=== PATIENT | male | born 1980 | race Caucasian/White ===

== ENCOUNTER 2017-08-28 23:31 | Observation (INO) | payer OTHER ==
[2017-08-28 23:47] VITALS: BMI 27.2
[2017-08-29] MEDS ORDERED: SODIUM CHLORIDE 1,000 ML IV ONE
[2017-08-29] MEDS ORDERED: ONDANSETRON 4 MG/2 ML VIAL IVPUSH STA
--- NOTE | 2017-08-29 00:12 | PDOC ---
History of Present Illness - General Chief Complaint: Migraine Headache Stated Complaint: MIGRAINE Time Seen by Provider: 08/28/17 23:47 History Source: Patient, Spouse Exam Limitations: No Limitations, Clinical Condition - History of Present Illness Initial Comments: 08/29/17 00:06 37-year-old male with history of migraines brought in by EMS after activated 911 secondary to severe headache and altered mental status. Patient has been having increasing frequency of headaches for 1-2 months, almost daily and not relieved with Relpax. Patient saw his primary physician over the last few weeks, had an MRI of the cervical spine (unclear whether also had MRI brain ) that showed some herniated cervical disks, otherwise has had recurring headaches nonetheless. This evening, was in the state of health and while at dinner began having his typical aura, had 2 beers with dinner, and they returned home when his headaches began. At home, per had apparent severe worsening of his headache followed by confusion and altered mental status, was on the ground having difficulty standing, and was unable to identify himself or the president to EMS. There was vomiting at home and again in the emergency department, no history of falls or head injury. Other than 2 beers tonight, no alcohol or drug abuse or intoxication. No other changes in medications, no recent travel, no sick contacts. NIH Stroke Scale - Last Known Well Date/Time & Onset Date Last Known Well: 08/28/17 Time Last Known Well: 23:15 - Initial Evaluation Level of consciousness: Alert Ask patient the month and their age: Answers one correctly Ask patient to open & close eyes; make fist and let go: Obeys both correctly Best gaze (horizontal eye movement): Normal Visual field testing: No visual field loss Facial paresis (Show teeth/raise eyebrows/close eyes tight): Normal symmetrical movement Motor Function: Left Arm: Normal Motor Function: Right Arm: Normal (extends arm 90 (or 45) degrees for 10 seconds without drift Motor Function: Left Leg: Normal (extends leg 30 degrees for 5 seconds without drift) Motor Function: Right Leg: Normal (extends leg 30 degrees for 5 seconds without drift) Limb Ataxia: No ataxia Sensory(Use pinprick test arms,legs,trunk,face/side to side): Normal Best language (Describe picture, name items, read sentences): Mild to moderate aphasia Dysarthria (read several words): Normal articulation Extinction and Inattention: No abnormality - Total Score NIH Stroke Scale Score: 2 Past History - Past Medical History Allergies/Adverse Reactions: Allergies Allergy/AdvReac Type Severity Reaction Status Date / Time No Allergy Information Allergy Verified 08/28/17 23:38 Available - Suicide/Smoking/Psychosocial Hx Smoking History: Unknown if ever smoked Hx Alcohol Use: No Drug/Substance Use Hx: No Review of Systems - Review of Systems Able to Perform ROS?: (limited to as perHPI) *Physical Exam - Vital Signs Last Vital Signs Temp Pulse Resp BP Pulse Ox 97.2 F L 53 L 14 104/71 95 08/28/17 23:38 08/28/17 23:38 08/28/17 23:38 08/28/17 23:38 08/28/17 23:38 - Physical Exam Comments: 08/29/17 00:09 Afebrile. GENERAL: vomited food content on stretcher and floor. The patient is asleep but arousable to voice. HEAD: Normal with no signs of trauma. EYES: PERRL, EOMI, + photophobia, conjunctiva clear with no pallor. ENT: oropharynx clear without exudates. Moist mucous membranes. NECK: Normal range of motion, supple without lymphadenopathy, masses, or meningismus. LUNGS: Breath sounds equal, clear to auscultation bilaterally. No wheeze/ crackles. HEART: Regular rate and rhythm, normal S1 and S2 without murmur or rub. ABDOMEN: Soft/nontender/nondistended. BS wnl. No guarding or rebound. No palpable masses. No hepatosplenomegaly. EXTREMITIES: Normal range of motion, no edema. 2+ distal pulses. No cords, erythema, or tenderness. NEUROLOGICAL: Cranial nerves II through XII grossly intact. Following commands and moving all extremities equally but confused, not answering questions appropriately (can't state full name, can't state where he is) PSYCH: unable to assess but cooperative. SKIN: Warm, Dry, no rashes or lesions noted. Heart Score/ECG Review #1 ECG reviewed & interpreted by me at: 02:22 General ECG Interpretation: Sinus Rhythm, Normal Rate (77), Normal Intervals ( qrs 108, qtc 450), No acute ischemic changes (isolated MT depression II, no ST changes) ED Treatment Course - LABORATORY CBC & Chemistry Diagram: 08/29/17 00:44 08/29/17 00:44 - RADIOLOGY Radiology Studies Ordered: Category Date Time Status HEAD CT WITHOUT CONTRAST [CT] Stat CT Scan 08/28/17 23:59 Ordered CHEST X-RAY PORTABLE* [RAD] Stat Radiology 08/29/17 00:00 Ordered Medical Decision Making - Critical Care Time Total Critical Care Time (minutes): 95 Critical Care Statement: The care of this patient involved high complexity decision making to prevent further life threatening deterioration of the patient 's condition and/or to evaluate & treat vital organ system(s) failure or risk of failure. - Medical Decision Making 08/29/17 00:13 37-year-old male with history of migraines presents now with severe headache and altered mental status. Vital signs are within normal limits, neurologically nonfocal, but confused. Stat head CT to r/o bleed seems less consistent with meningitis or encephalitis but will monitor mental status labs, ekg reassess 08/29/17 01:[address], required sedation with benzo. will return to CT again. wbc 12.5 with normal diff. Chem pending. 08/29/17 01:33 Chem also wnl. Still neuro intact but altered/agitated and requiring more benzo to get CT. ? tox. UA/tox ordered. continue to monitor 08/29/17 02:11 Labs wnl, trop negative. VS remain stable, BP 117/70, O2 99% on room air, P 84. Discussed possibility of intox with again: has h/o marijuana use but he denied to her today, has not noticed any other drug use. Awaiting CT read, but will proceed with observation placement at this time with presumed intox/agitated delerium. Remains less consistent with acute [employer]PECT[employer] infection give the acuity and slightly improving sxs with benzos. 08/29/17 02:24 Excepted for observation med/surge by Dr. Albarran, signout given to Dr. Solares. Pending: Utox. CT read as normal by [facility]. asleep at this time with normal VS, nonfocal neuro exam, and patent airway. *DC/Admit/Observation/Transfer Diagnosis at time of Disposition: Delirium Altered mental status Qualifiers: Altered mental status type: transient alteration of awareness Qualified Code(s) : R40.4 - Transient alteration of awareness - Discharge Dispostion Condition at time of disposition: Guarded Admit: Yes - Referrals Referrals: STAFF,NOT ON [Primary Care Provider] -
[2017-08-29 00:51] LABS: BASOPHIL 0.4 % (0-2.0); EOSINOPHIL 0.6 % (0-4.5); MCH 30.5 pg (25.7-33.7); MCHC 34.6 g/dl (32.0-35.9); MEAN CELL VOLUME 88.2 fl (80-96); MEAN PLT VOLUME 7.9 fl (7.5-11.1); NEUTROPHILS 76.5 % (42.8-82.8); PLATELET COUNT 217 K/MM3 (134-434); RDW 13.6 % (11.9-15.9); WHITE BLOOD COUNT 12.5 K/mm3 (4.0-10.0)
[2017-08-29 01:06] LABS: INR 0.96 (0.82-1.09); PROTHROMBIN TIME (PATIENT) 10.9 SEC (9.98-11.88)
[2017-08-29] MEDS ORDERED: ONDANSETRON 4 MG/2 ML VIAL ONE (01:06)
[2017-08-29 01:16] LABS: ALBUMIN 4.2 g/dl (3.4-5.0); ANION GAP 12 (8-16); BILIRUBIN,TOTAL 0.7 mg/dL (0.2-1.0); CALCIUM 8.9 mg/dL (8.5-10.1); CO2 24 mmol/L (21-32); CREATININE 0.7 mg/dL (0.7-1.3); GLUCOSE,RANDOM 118 mg/dL (74-106); SGPT/ALT 41 U/L (12-78); TOT PROT 6.9 g/dl (6.4-8.2)
[2017-08-29 01:19] LABS: ALK PHOS 75 U/L (45-117); CPK 89 IU/L (39-308); TROPONIN I < 0.02 ng/ml (0.00-0.05)
[2017-08-29 01:30] LABS: SGOT/AST 20 U/L (15-37)
[2017-08-29] MEDS ORDERED: HALOPERIDOL LACTATE 5 MG/ML IVPUSH ONE (01:38)
[2017-08-29] MEDS ORDERED: HALOPERIDOL LACTATE 5 MG/ML ONE (01:44)
[2017-08-29 02:41] LABS: ALCOHOL < 5.0 mg/dl (0-5)
[2017-08-29 02:53] LABS: SALICYLATE < 4.0 mg/dl (0.0-30.0)
--- NOTE | 2017-08-29 03:28 | HP ---
CHIEF COMPLAINT: AMS PCP: [place] HISTORY OF PRESENT ILLNESS: 37 yr old man with hx of migraines bibems by due to acute AMS and difficulty walking. He typically has 1-2 migraines a year, he has been experiencing a recent increase in frequency to several a month, to nearly everyday requiring relpax. He was in his usual state of health earlier this morning. They went to out to dinner, he had 2 beers, but he began to have aura so they quickly went home. He was out of his relpax and was about to go to sleep to try to find relief of his symptoms. heard him yell and fall in from the next room, she went to find him unable to stand and unable to walk. She was unable to help him up. He was confused at where he was, and what was happening around him. he had multiple episodes of nonbloody watery vomiting at home and in the ED. He had been recently sent for spinal MRI as per his PCP to evaluate migraines, and as per , he had lumbar disc herniations provided history as patient required sedation in ED due to combative behavior. has been away for the past week and does not recall him complaining of any fevers, chest pain, n/v, constipation, diarrhea eating any new foods or drug use during their phone conversation. they have been for nearly 15 years with children. ER course was notable for: (1) head CT (2) ativan + haldol Recent Travel: [place] PAST MEDICAL HISTORY: migraines PAST SURGICAL HISTORY: denies Social History: Smoking: denies Alcohol: occasionally Drugs: marijuana smoked occasionally 1-2x/every few months Family History: as per his elderly parents have "old people problems" denies family hx of mental health d/o, aneurysms, cancers. Allergies No Allergy Information Available Allergy (Verified 08/28/17 23:38) HOME MEDICATIONS: replax and adderall REVIEW OF SYSTEMS: unable to complete due to sedation PHYSICAL EXAMINATION GENERAL: sedated, in no acute distress. HEAD: Normal with no signs of trauma. EYES: patient would not allow me to open them EARS, NOSE, THROAT: Moist mucous membranes. NECK: Normal range of motion, supple without lymphadenopathy, JVD, or masses. LUNGS: Breath sounds equal, clear to auscultation bilaterally. No wheezes, and no crackles. No accessory muscle use. HEART: Regular rate and rhythm, normal S1 and S2 without murmur, rub or gallop. ABDOMEN: Soft, nontender, not distended, normoactive bowel sounds, no guarding, no rebound, no masses. MUSCULOSKELETAL: Normal range of motion at all joints. No bony deformities. UPPER EXTREMITIES: 2+ radial pulses, warm, well-perfused. No cyanosis. No clubbing. No peripheral edema. LOWER EXTREMITIES: 2+ dp pulses, warm, well-perfused. No calf tenderness. No peripheral edema. tattoos. NEUROLOGICAL: facial symmetry. +knee jerk b/l and biceps reflexes. downgoing babinski reflex b/l SKIN: Warm, dry, normal turgor, light-brown pigmented macular rash on left shoulder - as per it comes and goes Laboratory Results - last 24 hr 08/29/17 02:20 Salicylates < 4.0 Acetaminophen < 2.000 L Alcohol, Quantitative < 5.0 ASSESSMENT/PLAN: 37 yr old man with hx of migraines presents with acute AMS placed on observation for further evaluation. #Acute altered mental status in setting of severe migraine with aura - as per ED NIH stroke scale of [address] - low suspicion for CVA - suspicios for drug induced acute encephalopathy, either illicit or se of replax/adderall use, utox pending - r/o syphyilis, thyroid dysfunction, vit b12 def, lyme -neurology evaluation -NPO while sedated - repeated neurological tested once sedation decreases #DVT: SCDs Visit type - Emergency Visit Emergency Visit: Yes ED Registration Date: 08/29/17 Care time: The patient presented to the Emergency Department on the above date and was hospitalized for further evaluation of their emergent condition. - New Patient This patient is new to me today: Yes Date on this admission: 08/29/17 - Critical Care Critical Care patient: No
--- NOTE | 2017-08-29 03:43 | PN ---
Teaching Attending Note Name of Resident: Yenifer Solares ATTENDING PHYSICIAN STATEMENT I saw and evaluated the patient. Chart, data, imaging reviewed. I reviewed the resident's note and discussed the case with the resident. I agree with the resident's findings and plan as documented with modifications below. History obtained from EMR and patient's . SUBJECTIVE: 37-year-old male with history of migraines with aura c/o severe headache with aura which started yesterday morning which was followed by altered mental status. Patient saw his primary physician over the last few weeks, had an MRI of the cervical spine that showed some herniated cervical disks. Patient has been having increasing frequency of headaches for 1-2 months, almost daily. He takes Relpex for headahce ppx however has ran out of his medication recently. As per , patient smokes marijuana and last used about 3 weeks ago. There have been no sick contacts, recent travels. No fevers, no head trauma. OBJECTIVE: Last Vital Signs Temp Pulse Resp BP Pulse Ox 97.8 F 76 18 123/83 95 08/29/17 02:20 08/29/17 04:01 08/29/17 04:01 08/29/17 04:01 08/29/17 04:01 Exam is limited as patient was sedated and not cooperative Neruo- sedated HEENT- AT, NC CV-s1+S2+ RRR Chest - CTA b/l Abdomen- soft, obese, BS+ Skin -mutlipe tattoos Head CT- negative for intracranial bleed or masses Abnormal Lab Results 08/29/17 08/29/17 08/29/17 00:44 00:44 02:20 WBC 12.5 H BUN 19 H Random Glucose 118 H Acetaminophen < 2.000 L ASSESSMENT AND PLAN: #Acute onset of altered mental status in setting of severe migraine with aura. Unlikely acute intracranial vascular event as head CT is normal. Unlikely encephalitis/meningitis as patient is afebrile. Headaches may also be related to Adderral. Should r/o epilepsy. Should r/o illicit drugs. -admit to observation -EKG -UA -urine toxicology (including synthetic cannabinoids) -vitamin b12 -syphilis serology -Lyme serology -TSH -repeat electrolytes, supplement PRN -EEG -consider brain MRI -if no improvement, consider LP -neurology evaluation -NPO #DVT ppx -SCDs
--- NOTE | 2017-08-29 10:25 | PN ---
Physical Exam: SUBJECTIVE: Patient seen and examined at bedside. present. He remembers going out to dinner with his last night. He has no recollection of what happened in the restaurant or afterward. The next thing he remembers is being in the hospital. gives following additional history: patient has had migraines since age 17 , but have become more frequent over past 4 months. 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 Patient went to see his PCP Dr. Bang Orozco ([address] [place] [address] , fax) who ordered a spine MRI on 08/23/17. The results reportedly show three "slipped discs." The patient has not traveled outside [place]. He has had no sick contacts. Family recently moved to [place], but patient has not engaged in any outdoor activities. Patient smokes marijuana, last time ~ 3 weeks ago. has been away on business for past week. She thinks it unlikely patient did illicit drugs in her absence. OBJECTIVE: Vital Signs Period Temp Pulse Resp BP Sys/Sofia Pulse Ox Last 24 Hr 97.8 F-99.4 F 76-99 18-20 101-123/70-83 95-95 GENERAL: The patient is lethargic. Cannot keep eyes open. When he is awake he is A&Ox 3, but quickly falls off. Complains of back pain HEAD: Normal with no signs of trauma. EYES: PERRL, extraocular movements intact, sclera anicteric, conjunctiva clear. No ptosis. ENT: Ears normal, nares patent, oropharynx clear without exudates, moist mucous membranes. NECK: Trachea midline, full range of motion, supple. LUNGS: Breath sounds equal, clear to auscultation bilaterally, no wheezes, no crackles, no accessory muscle use. HEART: Regular rate and rhythm, S1, S2 without murmur, rub or gallop. ABDOMEN: Soft, nontender, nondistended, normoactive bowel sounds, no guarding, no rebound, no hepatosplenomegaly, no masses. EXTREMITIES: 2+ pulses, warm, well-perfused, no edema. NEUROLOGICAL: CN II thru XII grossly intact. 5/5 motor, 5/5 sensory all extremities. No focal deficits. Falls asleep during EOM testing. SKIN: pale, macular fungal-type rash on chest and upper left shoulder ( says chronic) Laboratory Tests 08/29/17 08/29/17 08/29/17 00:44 00:44 00:44 WBC 12.5 H RBC 5.30 Hgb 16.2 Hct 46.7 MCV 88.2 MCH 30.5 MCHC 34.6 RDW 13.6 Plt Count 217 MPV 7.9 Neutrophils % 76.5 Lymphocytes % 17.0 Monocytes % 5.5 Eosinophils % 0.6 Basophils % 0.4 ESR PT with INR 10.90 INR 0.96 Sodium 141 Potassium 3.9 Chloride 105 Carbon Dioxide 24 Anion Gap 12 BUN 19 H Creatinine 0.7 Creat Clearance w eGFR > 60 Random Glucose 118 H Lactic Acid Calcium 8.9 Phosphorus Magnesium Total Bilirubin 0.7 Direct Bilirubin AST 20 ALT 41 Alkaline Phosphatase 75 Creatine Kinase 89 Troponin I < 0.02 C-Reactive Protein B-Natriuretic Peptide Total Protein 6.9 Albumin 4.2 Vitamin B12 TSH Urine Color Urine Appearance Urine pH Ur Specific [place] Urine Protein Urine Glucose (UA) Urine Ketones Urine Blood Urine Nitrite Urine Bilirubin Urine Urobilinogen Ur Leukocyte Esterase Salicylates Opiates Screen Methadone Screen Acetaminophen Barbiturate Screen Phencyclidine Screen Ur Amphetamines Screen MDMA (Ecstasy) Screen Benzodiazepines Screen Cocaine Screen U Marijuana (THC) Screen Alcohol, Quantitative RPR Titer Lyme Screen IgG & IgM HIV 1&2 Antibody Screen HIV P24 Antigen Blood Type Antibody Screen 08/29/17 08/29/17 02:20 06:00 Vitamin B12 283 Salicylates < 4.0 Acetaminophen < 2.000 L Alcohol, Quantitative < 5.0 Active Medications Generic Name Dose Route Start Last Admin Trade Name Freq PRN Reason Stop Dose Admin Dextrose/Sodium Chloride 1,000 mls @ 75 mls/hr 08/29/17 10:00 D5-1/2ns - IV ASDIR [facility] ASSESSMENT/PLAN 37 year-old male with a PMH significant for migraine with aura, admitted for altered mental status. Altered mental status of uncertain etiology --infectious: elevated WBC, afebrile; discussed at length with Dr. Joy, will observe off antibiotics for now; low threshold to start acyclovir if fever or deterioration of mental status; RPR, Lyme, HIV pending; esr, crp pending; blood and urine cultures pending --neuro: h/o migraine with aura but no previous reported episodes of AMS; CT head unremarkable; will get MRI brain; neuro consult pending --toxic metabolic encephalopathy: utox pending; serum negative for salicylates, acetaminophen, alcohol F/E/N Fluids: D51/2 NS @ 75mL/hr Electrolytes: replete as indicated Nutrition: NPO Visit type - Emergency Visit Emergency Visit: Yes ED Registration Date: 08/29/17 Care time: The patient presented to the Emergency Department on the above date and was hospitalized for further evaluation of their emergent condition. - New Patient This patient is new to me today: Yes Date on this admission: 08/31/17 - Critical Care Critical Care patient: No
[2017-08-29 10:38] LABS: THYROID STIMULATING HORMONE 0.21 uIU/ml (0.358-3.74)
[2017-08-29 10:44] LABS: BASOPHIL 0.2 % (0-2.0); MCHC 34.1 g/dl (32.0-35.9); MEAN PLT VOLUME 8.1 fl (7.5-11.1); NEUTROPHILS 81.8 % (42.8-82.8); PLATELET COUNT 222 K/MM3 (134-434); RDW 13.4 % (11.9-15.9); WHITE BLOOD COUNT 13.9 K/mm3 (4.0-10.0)
--- NOTE | 2017-08-29 10:47 | PN ---
Progress Note, Physician Chief Complaint: ID Full noted dictated and discussed with Carmita Mohr INSTRUCTOR OF EDUCATION Afebrile Alert Sleepy but oriented completely Complaints headaches similiar to migraines and says get "aphagia" with migaines No travel PEts include cat No couph rash diarrhea sorethroat joint pains takes Adderal for ADD and uses marijuana only - Current Medication List Current Medications: Active Medications Dextrose/Sodium Chloride (D5-1/2ns -) 1,000 mls @ 75 mls/hr IV ASDIR S[facility]HIE - Objective Vital Signs: Vital Signs Temperature 99.2 F 08/29/17 09:22 Pulse Rate 99 H 08/29/17 08:58 Respiratory Rate 18 08/29/17 08:58 Blood Pressure 119/70 08/29/17 08:58 O2 Sat by Pulse Oximetry (%) 95 08/29/17 04:01 Constitutional: Yes: No Distress Eyes: Yes: Other (Comjuntival injection) Neck: Yes: Other (Supple in all directions) Cardiovascular: Yes: Regular Rate and Rhythm, S1, S2. No: Murmur Respiratory: Yes: WNL, Regular, CTA Bilaterally Gastrointestinal: Yes: Soft Edema: No Integumentary: Yes: Tattoos Labs: INR, PTT INR 0.96 (0.82-1.09) 08/29/17 00:44 Problem List - Problems (1) Altered mental status Code(s): R41.82 - ALTERED MENTAL STATUS, UNSPECIFIED Qualifiers: Altered mental status type: transient alteration of awareness Qualified Code(s): R40.4 - Transient alteration of awareness; R40.4 - Transient alteration of awareness (2) Delirium Code(s): R41.0 - DISORIENTATION, UNSPECIFIED (3) Migraine Code(s): G43.909 - MIGRAINE, UNSP, NOT INTRACTABLE, WITHOUT STATUS MIGRAINOSUS Assessment/Plan Laboratory Tests 08/29/17 08/29/17 08/29/17 00:44 00:44 02:20 WBC 12.5 H Hgb 16.2 Hct 46.7 Plt Count 217 Neutrophils % 76.5 Lymphocytes % 17.0 Monocytes % 5.5 Creatinine 0.7 Total Bilirubin 0.7 AST 20 ALT 41 Creatine Kinase 89 Salicylates < 4.0 Acetaminophen < 2.000 L Alcohol, Quantitative < 5.0 RPR Titer 08/29/17 06:00 WBC Hgb Hct Plt Count Neutrophils % Lymphocytes % Monocytes % Creatinine Total Bilirubin AST ALT Creatine Kinase Salicylates Acetaminophen Alcohol, Quantitative RPR Titer Pending Assessment At this time the findings do not point to an infectious etiology for his altered mental status Headaches yes but these similiar to his previous migraines. Currently he is alert and oriented and this argues against an encephalitis. He has some conjuctival injection ? significance lives in [facility]. Plan For now observe only NO ZOVIRAX or antibiotics at this time Should he have fever or deterioration of mental status would definately start Acyclovir HIV testing MRI of the brain Neurology evaluation BOO Joy MD
--- NOTE | 2017-08-29 10:50 | EKG ---
Test Reason : Blood Pressure : / mmHG Vent. Rate : 077 BPM Atrial Rate : 077 BPM P-R Int : 198 ms QRS Dur : 108 ms QT Int : 398 ms P-R-T Axes : 064 071 057 degrees QTc Int : 450 ms NORMAL SINUS RHYTHM WITH SINUS ARRHYTHMIA ST ELEVATION, CONSIDER EARLY REPOLARIZATION BORDERLINE ECG NO PREVIOUS ECGS AVAILABLE CLINICAL CORRELATION IS RECOMMENDED Confirmed by GRAY WEISS, FIDEL ([id number]) on 08/29/2017 10:49:53 AM Referred By: Confirmed By:FIDEL CASTELLANO MD
--- NOTE | 2017-08-29 11:14 | CONS ---
DATE OF CONSULTATION: 08/29/2017 This is a 37-year-old male with a long history of migraine headaches who I am asked to see for evaluation of altered mental status. He takes Relpax for his headaches and notes, over the last month, that his headaches have been increasing in frequency and severity. He is followed by neurologist and recently had an MRI of the cervical spine, which showed only cervical disk disease, but no other pathology, according to the progress notes. Yesterday, he went out to dinner with his and, when he returned home, noted that his headaches had begun once again. He also then became confused and, according to the patient, had what he described as aphasia with slurred speech. He has a history of alterations in speech, which he says have been part of his migraine episodes. He has no fever, chills and a preliminary drug screen from blood was negative for alcohol. He admits to using marijuana and takes Adderall for attention deficit disorder, but denies any other substance use. His HIV status is unknown. He is and lives with his , having recently relocated from [place] to [place]. He works as a musical interactive producer and musician and has not traveled, has no history of tick bites, other insect bites, joint pains, or exposure to wooded areas. Pets include a cat and he has no coryza, sore throat, or other symptoms to suggest respiratory infection. PAST MEDICAL HISTORY: As noted above. MEDICATIONS: For migraines. ALLERGIES: None known. SOCIAL HISTORY: As noted. FAMILY HISTORY: Reviewed and noncontributory. REVIEW OF SYSTEMS: All systems reviewed and negative. PHYSICAL EXAMINATION: General: He was an alert male who appeared completely oriented with a temperature 99.4 and 99.2, but otherwise had been afebrile. HEENT: Alert and oriented x3. Conjunctival injection. The pharynx is benign. Neck: Supple without adenopathy. Lungs: Clear to percussion and auscultation. Heart: S1, S2, regular rhythm without murmur. Abdomen: Soft and nontender without hepatosplenomegaly. Extremities: Without clubbing, cyanosis, edema. Skin: Multiple tattoos and what appeared to be a fungal macular rash on both sides of his chest. Neurologic: Cranial nerves intact. Motor and sensory strength appear normal. The white count is 12.5, hemoglobin 16.2, platelets of 217. Chemistry is completely within normal limits. CPK 89, troponin 0.02. Head CT scan without contrast: No acute bleed or infarct. Chest x-ray shows no acute infiltrate. ASSESSMENT: A 37-year-old male with a history of migraines notes that his headaches have become more severe in the last month.Experienced an episode of confusion with slurred speech last night following dinner which seems transient ; currently low-grade temperature of 99.2 with no evidence of meningitis or neurological findings to suggest encephalitis at this time. He is currently completely oriented. As discussed with Carmita Mohr, would obtain an MRI of the brain, neurology consultation, urine for complete toxicology profile, obtain HIV testing. With regard to antimicrobial therapy, would defer for now, but, should he have fever,consideration will need to be given to antibiotics to cover both bacterial pathogens as well as possible Herpes simplex infection with acyclovir, but, again,for the time being, will observe only. Would however get blood cultures x 2 sets and a CRP now Lastly an embolic event considered LANA ROWAN M.D. [id number] SANDRO
[2017-08-29 11:16] LABS: ALBUMIN 3.9 g/dl (3.4-5.0); ALK PHOS 78 U/L (45-117); ANION GAP 9 (8-16); BILIRUBIN,DIRECT 0.2 mg/dL (0.0-0.2); BILIRUBIN,TOTAL 0.8 mg/dL (0.2-1.0); CALCIUM 8.9 mg/dL (8.5-10.1); CO2 25 mmol/L (21-32); CREATININE 0.8 mg/dL (0.7-1.3); GLUCOSE,RANDOM 110 mg/dL (74-106); PHOSPHOROUS 4.2 mg/dL (2.5-4.9); SGOT/AST 11 U/L (15-37); SGPT/ALT 38 U/L (12-78); TOT PROT 6.7 g/dl (6.4-8.2)
[2017-08-29 11:41] LABS: HIV 1 & 2 AB NEGATIVE; HIV 1 AGp24 NEGATIVE
[2017-08-29] MEDS: DEXTROSE 5%-0.45% SALINE 1,000 ML IV SCH (12:57)
[2017-08-29 13:10] LABS: URINE APPEARANCE CLEAR; URINE BILIRUBIN NEGATIVE (NEGATIVE); URINE BLOOD NEGATIVE (NEGATIVE); URINE COLOR YELLOW; URINE GLUCOSE (UA) NEGATIVE (NEGATIVE); URINE KETONE NEGATIVE (NEGATIVE); URINE NITRITE NEGATIVE (NEGATIVE); URINE PROTEIN NEGATIVE (NEGATIVE); URINE UROBILINOGEN NEGATIVE mg/dL (0.2-1.0)
[2017-08-29 13:23] LABS: URINE MARIJUANA THC POSITIVE ng/ml (CUTOFF=50)
[2017-08-29 17:20] LABS: URINE LEUK ESTERASE Negative (NEGATIVE)
[2017-08-29] MEDS ORDERED: METOCLOPRAMIDE HCL 10 MG TABLET (FP) PO PRN (17:57)
[2017-08-29] MEDS ORDERED: IBUPROFEN 600 MG TABLET (FP) PO PRN (17:59)
--- NOTE | 2017-08-29 18:08 | CON.NEURO ---
Consult - Alcohol/Substance Use Hx Alcohol Use: No - Smoking History Smoking history: Unknown if ever smoked Home Medications - Allergies Allergies/Adverse Reactions: Allergies Allergy/AdvReac Type Severity Reaction Status Date / Time No Allergy Information Allergy Verified 08/28/17 23:38 Available - Home Medications Home Medications: Ambulatory Orders Dextroamphetamine/Amphetamine [Adderall Xr 30 mg Capsule] 30 mg PO DAILY Physical Exam-Neuro Vital Signs: Vital Signs Temperature 98.0 F 08/29/17 17:40 Pulse Rate 83 08/29/17 17:40 Respiratory Rate 18 08/29/17 17:40 Blood Pressure 114/54 08/29/17 17:40 O2 Sat by Pulse Oximetry (%) 95 08/29/17 04:01 Labs: CBC, BMP 08/29/17 10:15 08/29/17 10:15 INR, PTT INR 0.96 (0.82-1.09) 08/29/17 00:44 Imaging - Results Cat Scan: Report Reviewed MRI: Report Reviewed Assessment/Plan cc episode of severe migraine with confusion HPI 37 year old male history of migraine. 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 Recently he has once a week for last one month. His headachce are associated with aura ( visual) and following by four to six hours of headhcae , he usually takes relpax prn for headhace. He has very severe headhace on wednesday night . He became confused. His cat head and mri of brain was normal. He denies any head injury, cancer, or fever . He do get nasuea and light and sound bothers him during headhace . He did have two beer on wednesday night . Past Medical history as above. Family history , ROS, Social History was reviwed in chart Neurological Examination Alert oriented x 3, speech is normal, no dysarthria or aphasia was noticed CN eomi, and pupils are reactive and no face asymmetry moving all extremity , sensation is normal reflex are normal and symmetrical ct of head and mri of brain is normal Assessment-- 37 year old male having more frequent Migraine headhace with aura. Last one episode when he had episode of confusion. I suspect it was complex migraine . No evidnece of meningitis or Subarachnoid hemorrhage ( no family history of brain aneurysm Plan-- given his recent worsening of headhace would start topamax 25 mg po bid and also advise to take magnesium sulphage 400 mg once a day and riboflavin 400 mg po once a day for migraine prevention - take ibuprofen 600 mg with reglan prn for acute migraine, triptans would be contraindicated due to this episode of complex migraine - life style modifications ( watch , exercise, meditation, avoid triggers) were discussed - he was given my office address to follow up with me outpatient - as his work up is complete , he can be discharged from hospital Thanks for consult Chapincito Casper MD
[2017-08-29] MEDS: TOPIRAMATE 25 MG TABLET (FP) PO SCH (21:59)
[2017-08-30] MEDS: DEXTROSE 5%-0.45% SALINE 1,000 ML IV SCH (02:46)
[2017-08-30 06:31] VITALS: TEMP 98
[2017-08-30 07:11] LABS: BASOPHIL 0.5 % (0-2.0); EOSINOPHIL 0.6 % (0-4.5); MCH 29.8 pg (25.7-33.7); MCHC 34.4 g/dl (32.0-35.9); MEAN CELL VOLUME 86.7 fl (80-96); MEAN PLT VOLUME 7.8 fl (7.5-11.1); NEUTROPHILS 58.6 % (42.8-82.8); PLATELET COUNT 212 K/MM3 (134-434); RDW 13.4 % (11.9-15.9); WHITE BLOOD COUNT 8.1 K/mm3 (4.0-10.0)
[2017-08-30 07:30] LABS: ALBUMIN 3.7 g/dl (3.4-5.0); ALK PHOS 79 U/L (45-117); ANION GAP 7 (8-16); BILIRUBIN,TOTAL 0.9 mg/dL (0.2-1.0); CALCIUM 8.3 mg/dL (8.5-10.1); CO2 26 mmol/L (21-32); CREATININE 0.9 mg/dL (0.7-1.3); GLUCOSE,RANDOM 105 mg/dL (74-106); MAGNESIUM 2.1 mg/dL (1.8-2.4); SGOT/AST 14 U/L (15-37); SGPT/ALT 39 U/L (12-78); TOT PROT 6.5 g/dl (6.4-8.2)
--- NOTE | 2017-08-30 07:41 | DS ---
Physical Exam: SUBJECTIVE: Patient seen and examined. Feels much better, headache almost completely resolved, no aura. Still with no recollection of events from Wednesday night at restaurant with until Wednesday afternoon in the hospital. OBJECTIVE: Vital Signs Period Temp Pulse Resp BP Sys/Sofia Pulse Ox Last 24 Hr 98.0 F-99.4 F 72-99 18-20 114-128/54-86 95 PHYSICAL EXAM GENERAL: The patient is awake, alert, and fully oriented, in no acute distress. HEAD: Normal with no signs of trauma. EYES: PERRL, extraocular movements intact, sclera anicteric, conjunctiva clear. LUNGS: Breath sounds equal, clear to auscultation bilaterally, no wheezes, no crackles, no accessory muscle use. HEART: Regular rate and rhythm, S1, S2 without murmur, rub or gallop. ABDOMEN: Soft, nontender, nondistended, normoactive bowel sounds, no guarding, no rebound, no hepatosplenomegaly, no masses. EXTREMITIES: 2+ pulses, warm, well-perfused, no edema. NEUROLOGICAL: Cranial nerves II through XII grossly intact. Normal speech, steady gait. Laboratory Results - last 24 hr 08/29/17 08/29/17 08/29/17 06:00 06:00 10:15 WBC 13.9 H RBC 5.44 Hgb 16.3 Hct 47.9 MCV 88.0 MCH 30.0 MCHC 34.1 RDW 13.4 Plt Count 222 MPV 8.1 Neutrophils % 81.8 Lymphocytes % 12.5 D Monocytes % 5.5 Eosinophils % 0.0 D Basophils % 0.2 ESR Sodium Potassium Chloride Carbon Dioxide Anion Gap BUN Creatinine Creat Clearance w eGFR Random Glucose Lactic Acid Calcium Phosphorus Magnesium Total Bilirubin Direct Bilirubin AST ALT Alkaline Phosphatase Creatine Kinase C-Reactive Protein B-Natriuretic Peptide Total Protein Albumin Vitamin B12 283 TSH 0.21 L Urine Color Urine Appearance Urine pH Ur Specific [place] Urine Protein Urine Glucose (UA) Urine Ketones Urine Blood Urine Nitrite Urine Bilirubin Urine Urobilinogen Ur Leukocyte Esterase Opiates Screen Methadone Screen Barbiturate Screen Phencyclidine Screen Ur Amphetamines Screen MDMA (Ecstasy) Screen Benzodiazepines Screen Cocaine Screen U Marijuana (THC) Screen RPR Titer Nonreactive HIV 1&2 Antibody Screen HIV P24 Antigen 08/29/17 08/29/17 08/29/17 10:15 10:15 10:15 WBC RBC Hgb Hct MCV MCH MCHC RDW Plt Count MPV Neutrophils % Lymphocytes % Monocytes % Eosinophils % Basophils % ESR 3 Sodium 139 Potassium 3.8 Chloride 105 Carbon Dioxide 25 Anion Gap 9 BUN 12 D Creatinine 0.8 Creat Clearance w eGFR Random Glucose 110 H Lactic Acid 1.2 Calcium 8.9 Phosphorus 4.2 Magnesium 2.0 Total Bilirubin 0.8 Direct Bilirubin 0.2 AST 11 L D ALT 38 Alkaline Phosphatase 78 Creatine Kinase C-Reactive Protein B-Natriuretic Peptide Total Protein 6.7 Albumin 3.9 Vitamin B12 TSH Urine Color Urine Appearance Urine pH Ur Specific [place] Urine Protein Urine Glucose (UA) Urine Ketones Urine Blood Urine Nitrite Urine Bilirubin Urine Urobilinogen Ur Leukocyte Esterase Opiates Screen Methadone Screen Barbiturate Screen Phencyclidine Screen Ur Amphetamines Screen MDMA (Ecstasy) Screen Benzodiazepines Screen Cocaine Screen U Marijuana (THC) Screen RPR Titer HIV 1&2 Antibody Screen HIV P24 Antigen 08/29/17 08/29/17 08/29/17 10:15 10:15 10:53 WBC RBC Hgb Hct MCV MCH MCHC RDW Plt Count MPV Neutrophils % Lymphocytes % Monocytes % Eosinophils % Basophils % ESR Sodium Potassium Chloride Carbon Dioxide Anion Gap BUN Creatinine Creat Clearance w eGFR Random Glucose Lactic Acid Calcium Phosphorus Magnesium Total Bilirubin Direct Bilirubin AST ALT Alkaline Phosphatase Creatine Kinase 83 C-Reactive Protein 0.4 H B-Natriuretic Peptide 113.68 Total Protein Albumin Vitamin B12 TSH Urine Color Urine Appearance Urine pH Ur Specific [place] Urine Protein Urine Glucose (UA) Urine Ketones Urine Blood Urine Nitrite Urine Bilirubin Urine Urobilinogen Ur Leukocyte Esterase Opiates Screen Methadone Screen Barbiturate Screen Phencyclidine Screen Ur Amphetamines Screen MDMA (Ecstasy) Screen Benzodiazepines Screen Cocaine Screen U Marijuana (THC) Screen RPR Titer HIV 1&2 Antibody Screen Negative HIV P24 Antigen Negative 08/29/17 08/29/17 08/30/17 12:14 12:14 06:00 WBC 8.1 D RBC 5.52 Hgb 16.5 Hct 47.9 MCV 86.7 MCH 29.8 MCHC 34.4 RDW 13.4 Plt Count 212 MPV 7.8 Neutrophils % 58.6 D Lymphocytes % 30.2 D Monocytes % 10.1 D Eosinophils % 0.6 D Basophils % 0.5 ESR Sodium Potassium Chloride Carbon Dioxide Anion Gap BUN Creatinine Creat Clearance w eGFR Random Glucose Lactic Acid Calcium Phosphorus Magnesium Total Bilirubin Direct Bilirubin AST ALT Alkaline Phosphatase Creatine Kinase C-Reactive Protein B-Natriuretic Peptide Total Protein Albumin Vitamin B12 TSH Urine Color Yellow Urine Appearance Clear Urine pH 7.0 Ur Specific [place] 1.015 Urine Protein Negative Urine Glucose (UA) Negative Urine Ketones Negative Urine Blood Negative Urine Nitrite Negative Urine Bilirubin Negative Urine Urobilinogen Negative Ur Leukocyte Esterase Negative Opiates Screen Negative Methadone Screen Negative Barbiturate Screen Negative Phencyclidine Screen Negative Ur Amphetamines Screen Negative MDMA (Ecstasy) Screen Negative Benzodiazepines Screen Positive Cocaine Screen Negative U Marijuana (THC) Screen Positive RPR Titer HIV 1&2 Antibody Screen HIV P24 Antigen 08/30/17 06:00 WBC RBC Hgb Hct MCV MCH MCHC RDW Plt Count MPV Neutrophils % Lymphocytes % Monocytes % Eosinophils % Basophils % ESR Sodium 139 Potassium 3.9 Chloride 106 Carbon Dioxide 26 Anion Gap 7 L BUN 8 D Creatinine 0.9 Creat Clearance w eGFR > 60 Random Glucose 105 Lactic Acid Calcium 8.3 L Phosphorus Magnesium 2.1 Total Bilirubin 0.9 Direct Bilirubin AST 14 L D ALT 39 Alkaline Phosphatase 79 Creatine Kinase C-Reactive Protein B-Natriuretic Peptide Total Protein 6.5 Albumin 3.7 Vitamin B12 TSH Urine Color Urine Appearance Urine pH Ur Specific [place] Urine Protein Urine Glucose (UA) Urine Ketones Urine Blood Urine Nitrite Urine Bilirubin Urine Urobilinogen Ur Leukocyte Esterase Opiates Screen Methadone Screen Barbiturate Screen Phencyclidine Screen Ur Amphetamines Screen MDMA (Ecstasy) Screen Benzodiazepines Screen Cocaine Screen U Marijuana (THC) Screen RPR Titer HIV 1&2 Antibody Screen HIV P24 Antigen HOSPITAL COURSE: Date of Admission:08/29/17 Date of Discharge: 08/30/17 Pre hospital course 37 year-old male with a PMH significant for migraine with aura since age 17. Patient has had an increase in migraine frequency over the past several months. He usually takes Relpax but ran out of the medication. On Wednesday night he had a migraine but went out for dinner with his . At the restaurant he developed visual aura which he could only describe as "fuzziness." Patient had no recollection of what occurred thereafter until he woke up in the hospital the next day. Patient's describes the patient becoming increasingly confused at the restaurant. She took him home and had to assist him up the stairs because of an unsteady gait. She got him into bed and went downstairs. She heard a sound, went back upstairs, and patient had fallen out of bed to the floor. called 911 and when EMS arrived, patient's speech was slurred and not understandable. Hospital course Patient was placed on observation for altered mental status. He was lethargic and confused. He had an episode of agitation in the ED and received one dose if ativan 2mg (which may have contributed to his somnolence). Over the course of about 12 hours patient's mental status improved, and by 24 hours he had returned to his high-functioning baseline. Patient was afebrile at all times. He had mild leukocytois on admission which trended to wnl. He was not treated with antibiotics. Utox was positive for marijuna to which patient admits occasional use. CT head and MRI brain were unremarkable. Patient was seen and evaluated by neurology who diagnosed complex migraine. Patient was started on topamax 25mg BD. It was suggested he take magnesium sulphate 400 mg once a day and riboflavin 400 mg po once a day for migraine prevention. It was suggested he take ibuprofen 600 mg with reglan prn for acute migraine. Triptans would be contraindicated going forward due to this episode of complex migraine. Life style modifications (diet, exercise, trigger avoidance ) were discussed. Minutes to complete discharge: 35 Discharge Summary Reason For Visit: ALTERED MENTAL STATUS (AMS) Current Active Problems Altered mental status (Acute) Delirium (Acute) Migraine (Acute) Condition: Improved - Instructions Diet, Activity, Other Instructions: Three prescriptions have been sent to your pharmacy in [place]. Take these medications as prescribed. You should follow up with your primary care provider, Dr. Orozco, within 2 weeks of your discharge. Return to the emergency department for any new or worsening symptoms. Referrals: Bang Orozco Dr. [Other] - 1 Week STAFF,NOT ON [Primary Care Provider] - Disposition: HOME - Home Medications Comprehensive Discharge Medication List: Ambulatory Orders Dextroamphetamine/Amphetamine [Adderall Xr 30 mg Capsule] 30 mg PO DAILY This patient is new to me today: No Emergency Visit: Yes ED Registration Date: 08/29/17 Care time: The patient presented to the Emergency Department on the above date and was hospitalized for further evaluation of their emergent condition. Critical Care patient: No - Discharge Referral Referred to [facility] No
[2017-08-30 09:49] VITALS: BP 123/75; PULSE 79
[2017-08-30] MEDS ORDERED: PT OWN MED DRAWER 7, Y5N ONE (09:52)
[2017-08-30] MEDS: TOPIRAMATE 25 MG TABLET (FP) PO SCH (09:53)
--- NOTE | 2017-08-30 10:14 | EKG ---
Test Reason : Blood Pressure : / mmHG Vent. Rate : 093 BPM Atrial Rate : 093 BPM P-R Int : 202 ms QRS Dur : 106 ms QT Int : 370 ms P-R-T Axes : 060 074 031 degrees QTc Int : 460 ms NORMAL SINUS RHYTHM NORMAL ECG WHEN COMPARED WITH ECG OF 29-AUG-2017 02:22, T WAVE VARIATION Confirmed by ALEKSANDRA PORTER MD ([id number]) on 08/30/2017 10:14:27 AM Referred By: Marysol TILLEY Confirmed By:ALEKSANDRA PORTER MD
== END 2017-08-30 10:33 | disposition home or self-care (01) ==
LOC: JER 23:31 → JERBED 08-29 02:15 → INTOOBSV 08-29 02:15 → UNDOADMIN 08-29 02:20 → JERBED 08-29 02:20 → INTOOBSV 08-29 03:45 → OBSVTOIN 08-29 03:45 → J7W 08-29 04:40
PROVIDERS: ADMIT Internal Medicine; ATTEND Nurse Practitioner Acute Care
PROC: 3E033GC Introduction of Other Therapeutic Substance into Peripheral Vein, Percutaneous Approach (ICD-10-PCS; principal; 2017-08-29)
PROC: 3E0337Z Introduction of Electrolytic and Water Balance Substance into Peripheral Vein, Percutaneous Approach (ICD-10-PCS; 2017-08-29)
DX: R41.82 Altered mental status, unspecified (principal); R41.0 Disorientation, unspecified; R40.4 Transient alteration of awareness; G43.109 Migraine with aura, not intractable, without status migrainosus
CPT/HCPCS: 36415; 70450-TC; 70551-TC; 71010-TC; 80048; 80053; 80076; 80307; 81003; 82550; 82607; 83605; 83735; 83880; 84100; 84443; 84484; 85025; 85610; 85651; 86140; 86593; 86618; 86850; 86900; 86901; 87040; 87086; 87389; 93005; 93010; 95816; 99285-25; G0378